=== PATIENT | male | born 1950 | race African-American/Black ===

== ENCOUNTER 2019-08-24 08:57 | Emergency (ER) | payer MEDICARE ==
[~2019-08-24] VITALS: Ht 188 cm; Wt 90.0 kg
[2019-08-24 12:23] LABS: BASOPHILS % 0.4 % (0.0-2.0); EOSINOPHILS % 0.6 % (0.0-5.0); HEMATOCRIT. 33.2 % (42.0-52.0); HEMOGLOBIN. 11.5 g/dL (14.0-18.0); MEAN CORPUSCULAR HEMOGLOBIN 36.3 pg (28.0-32.0); MEAN CORPUSCULAR VOLUME 104.9 fL (80.0-94.0); MEAN PLATELET VOLUME 7.8 fl (7.4-10.4); MONOCYTES % 12.7 % (2.0-8.0); NEUTROPHILS % 72.3 % (40.0-76.0); PLATELET 220 x1000/uL (130-400); RED BLOOD CELL COUNT 3.17 mill/uL (4.7-6.1); RED CELL DISTRIBUTION WIDTH 15.1 % (11.6-14.6)
[2019-08-24 12:28] LABS: CHLORIDE 104 mEq/L (98-107)
[2019-08-24 13:45] VITALS: BP 147/86
== END 2019-08-24 14:24 | disposition home or self-care (01) ==
LOC: ER 08:57
DX: R60.0 Localized edema (principal)
CPT/HCPCS: 36415; 71045; 80053; 83880; 84484; 85025; 86850; 86900; 93005; 93970; 99285